=== PATIENT | male | born 1970 | race Caucasian/White ===

== ENCOUNTER 2017-11-02 11:05 | Observation (INO) ==
--- NOTE | 2017-11-02 11:39 | ED ---
HPI General Chief complaint: Back Pain/Injury Stated complaint: Back Pain Time Seen by Provider: 11/02/17 11:25 History of Present Illness HPI narrative: This is a 47-year-old male who presents for evaluation of worsening chronic lower back pain. He reports history of bulging disks in his lower back. Reports pain in his lower back that radiates down both legs, left greater than right, some paresthesias in the left foot. He was seen here on October 31 and underwent an epidural steroid nerve root injection performed on October [address] Perez. He reports that this helped a little bit with his pain. He spoke with Dr. Perez today who recommended that he come here for likely admission, consultation with neurosurgeon Dr. bartolo Salmeron is also expecting him. Symptoms are moderate, aggravated with movement, partially relieved with the use of hydrocodone acetaminophen. He denies any bowel or bladder incontinence, saddle anesthesia. He has no other complaints at this time. Related Data Home Medications Medication Instructions Recorded Confirmed cyclobenzaprine 5 mg PO TID 10/31/17 10/31/17 meloxicam 15 mg PO DAILY 10/31/17 10/31/17 Allergies Allergy/AdvReac Type Severity Reaction Status Date / Time Sulfa (Sulfonamide Allergy Mild rash Verified 10/31/17 05:42 Antibiotics) sulfamethoxazole Allergy Mild rash Verified 10/31/17 05:42 trimethoprim Allergy Mild rash Verified 10/31/17 05:42 Review of Systems ROS: all other systems reviewed are negative PMFSH Social History Social History Substance History: No History of Abuse Second Hand Smoke Exposure: No Smoking Status: Never smoker How Often Do You Have a Drink Containing Alcohol: Monthly or less Recent Travel in [facility] within the Last 8 Weeks: No Recent Out of Country Travel within the Last 8 Weeks: No Exam Narrative Exam Narrative: GENERAL: This is a well-developed well-nourished male in no acute distress SKIN: Warm and dry. HEAD: Atraumatic. Normocephalic. EYES: Pupils equal and round. No scleral icterus. No injection or drainage. ENT: No nasal bleeding or discharge. Mucous membranes pink and moist. NECK: Trachea midline. No JVD. CARDIOVASCULAR: Regular rate and rhythm. No murmur appreciated. RESPIRATORY: No accessory muscle use. Clear to auscultation. Breath sounds equal bilaterally. GASTROINTESTINAL: Abdomen soft, non-tender, nondistended. Hepatic and splenic margins not palpable. MUSCULOSKELETAL: No obvious deformities. No lower extremity edema. 2+ dorsalis pedis and posterior tibial pulses bilaterally. 5 out of 5 muscle strength for flexion and extension, leg flexion and extension, dorsi and plantar flexion, extensor hallucis longus bilaterally. NEUROLOGICAL: Awake and alert. No obvious cranial nerve deficits. Motor grossly within normal limits. Normal speech. Course Initial Documented Vital Signs Temperature 97.8 F 11/02/17 11:19 Pulse Rate 83 11/02/17 11:19 Respiratory Rate 20 11/02/17 11:19 Blood Pressure 175/90 H 11/02/17 11:19 Last Documented Vital Signs Temperature 97.8 F 11/02/17 11:19 Pulse Rate 83 11/02/17 11:19 Respiratory Rate 20 11/02/17 11:19 Blood Pressure 175/90 H 11/02/17 11:19 Medical Decision Making MDM Narrative Medical decision making narrative: I discussed the case with the circulating nurse in the OR who communicated with Dr. Trujillo. He would like the patient to be admitted to the medicine team with consultation to himself. Medical Screen Exam Complete: Yes Emergency Medical Condition: Yes Differential Diagnosis Differential Diagnosis: Back pain, herniated nucleus pulposus, conus medullaris , cauda equina syndrome, spinal stenosis, epidural abscess Lab Data Result diagrams: 11/02/17 11:50 11/02/17 11:50 Lab Results 11/02/17 11/02/17 Range/Units 11:50 11:50 WBC 7.7 (4.0-11.0) th/mm3 RBC 5.16 (4.50-5.90) mil/mm3 Hgb 15.4 (13.0-17.0) gm/dL Hct 45.5 (39.0-51.0) % MCV 88.1 (80.0-100.0) fL MCH 29.9 (27.0-34.0) pg MCHC 33.9 (32.0-36.0) % RDW 13.5 (11.6-17.2) % Plt Count 199 (150-450) th/mm3 MPV 9.3 (7.0-11.0) fL Neut % (Auto) 82.9 H (16.0-70.0) % Lymph % (Auto) 11.1 (9.0-44.0) % [place] % (Auto) 5.9 (0.0-8.0) % Eos % (Auto) 0.0 (0.0-4.0) % Baso % (Auto) 0.1 (0.0-2.0) % Neut # (Auto) 6.3 (1.8-7.7) th/mm3 Lymph # (Auto) 0.8 L (1.0-4.8) th/mm3 [place] # (Auto) 0.5 (0.0-0.9) th/mm3 Eos # (Auto) 0.0 (0.0-0.4) th/mm3 Baso # (Auto) 0.0 (0.0-0.2) th/mm3 WBC Differential . Differential Comment Auto diff final PT 10.3 (9.8-11.6) sec INR 1.0 Ratio APTT 22.3 L (24.3-30.1) sec Discharge Plan Discharge Disposition Patient Disposition: 30 Still Patient Discharge Condition Condition: Stable Discharge Details Diagnosis: Lumbar radiculopathy Physicians Team ED Provider: Pillo Christensen ED Midlevel Provider: Gabe Carlson Primary Care Provider: Anders Benavides Attending Provider: Edda Syed Status ED Status: Admitted Observation Patient
[2017-11-02 12:24] LABS: Baso % (Auto) 0.1 % (0.0-2.0); Hematocrit 45.5 % (39.0-51.0); Hemoglobin 15.4 gm/dL (13.0-17.0); Lymph # (Auto) 0.8 th/mm3 (1.0-4.8); Lymph % (Auto) 11.1 % (9.0-44.0); Mean Corpuscular HGB Conc 33.9 % (32.0-36.0); Mean Corpuscular Hemoglobin 29.9 pg (27.0-34.0); Mean Corpuscular Volume 88.1 fL (80.0-100.0); Mean Platelet Volume 9.3 fL (7.0-11.0); Mono # (Auto) 0.5 th/mm3 (0.0-0.9); Mono % (Auto) 5.9 % (0.0-8.0); Neut # (Auto) 6.3 th/mm3 (1.8-7.7); Neut % (Auto) 82.9 % (16.0-70.0); Platelet Count 199 th/mm3 (150-450); Red Blood Count 5.16 mil/mm3 (4.50-5.90); Red Cell Distribution Width 13.5 % (11.6-17.2); White Blood Count 7.7 th/mm3 (4.0-11.0)
[2017-11-02 12:32] LABS: Activated Partial Thrombo Time 22.3 sec (24.3-30.1); Prothrombin Time 10.3 sec (9.8-11.6)
[2017-11-02 12:49] LABS: Anion Gap 8 meq/L (5-15); Blood Urea Nitrogen 29 mg/dL (7-18); Calcium 9.1 mg/dL (8.5-10.1); Carbon Dioxide 26.2 meq/L (21.0-32.0); Chloride 110 meq/L (98-107); Glomerular Filtration Rate Greater Than 89 mL/min (>89); Glucose,Random 96 mg/dL (74-106); Potassium 4.2 meq/L (3.5-5.1); Sodium 144 meq/L (136-145)
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
[2017-11-02] MEDS ORDERED: Acetaminophen 325 MG Tablet PO PRN (15:39)
[2017-11-02] MEDS ORDERED: Morphine Inj 4 MG/ML Vial IV.PUSH PRN ×2 (15:44→15:45)
[2017-11-02] MEDS ORDERED: ceFAZolin 2 GM Premix Inj 2 GM/50 ML PIGGYBACK IV.SIG PRN (16:47)
[2017-11-02] MEDS: Sod Chloride 0.9% Inj 1,000 ML IV.CONT SCH ×2 (18:00→23:53)
--- NOTE | 2017-11-02 19:09 | MR ---
EXAM DATE: 11/02/2017 6:53 PM EDT AGE/SEX: 47 years / Male INDICATIONS: HNP. Back pain and left leg numbness. CLINICAL DATA: This is the patient's initial encounter. Patient reports that signs and symptoms have been present for 2 days and indicates a pain score of 5/10. MEDICAL/SURGICAL HISTORY: None. None. COMPARISON: [facility], MR LUMBAR SPINE W/O CONTRAST, 09/27/2017. [facility], MR CERVICAL SPINE W/O CONTRAST, . . TECHNIQUE: Multiplanar, multisequence MRI of the lumbar spine was performed without contrast. Patie nt was scanned in a sitting position; neutral, flexion, and extension scans were performed in the sa gittal plane. FINDINGS: Vertebra: Homogeneous signal. Normal alignment. Conus: Normal level and configuration. T12-L1: The thecal sac has a normal diameter. No evidence of disc bulge or protrusion. The neural foramina are patent bilaterally. L1-L2: There is a tiny central disc bulge which results in no spinal stenosis or neuroforaminal moose rowing. L2-L3: Minimal diffuse asymmetric disc bulge to the right is noted. Mild facet joint hypertrophy is noted bilaterally. There is no spinal stenosis. Mild right neuroforaminal narrowing is noted. The le ft neuroforamen is patent. L3-L4: Mild diffuse disc bulge and facet joint hypertrophy are noted resulting in no spinal stenosi s or significant neural foraminal narrowing L4-L5: There has been significant interval worsening of the moderate to large central disc herniati on with extruded fragment extending inferiorly which results in moderate to severe spinal stenosis. N o significant neural foraminal narrowing is noted. L5-S1: Mild diffuse disc bulge and facet joint hypertrophy are noted resulting in no spinal stenosi s or significant neuroforaminal narrowing. CONCLUSION: 1. Significant interval worsening of the moderate to large central disc herniation with extruded fra gment extending inferiorly at L4-5 which results in moderate to severe spinal stenosis. No significan t neural foraminal narrowing is noted. 2. Mild diffuse disc bulges and facet joint hypertrophy at L3-4 and L5-S1 resulting in no spinal telly nosis or neuroforaminal narrowing. 3. Mild right neuroforaminal narrowing at L2-3. 4. Tiny central disc bulge at L1-2. Electronically signed by: Pillo Soler MD 11/02/2017 7:08 PM EDT
[2017-11-02] MEDS: Senna/Docusate Sodium 8.6/50 MG Tablet PO SCH (20:38)
[2017-11-03] MEDS: Sod Chloride 0.9% Inj 1,000 ML IV.CONT SCH ×3 (05:13→15:55)
[2017-11-03] MEDS: Senna/Docusate Sodium 8.6/50 MG Tablet PO SCH ×2 (08:32→20:55)
[2017-11-03] MEDS ORDERED: methylPREDNISolone acetate 40 MG/ML VIAL ONE (08:42)
[2017-11-03] MEDS ORDERED: Gelatin Size 100 Topical Foam ONE (08:42)
[2017-11-03] MEDS ORDERED: Bupivacaine/Epinephrine 0.5% Inj 50 ML Vial ONE (08:42)
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
[2017-11-03] MEDS ORDERED: Thrombin Topical Soln 5,000 UNIT Vial TOPICAL ONE (11:17)
[2017-11-03] MEDS ORDERED: fentaNYL Citrate Inj 100 MCG/2 ML Ampul ONE ×2 (11:20→13:59)
[2017-11-03] MEDS ORDERED: HYDROmorphone PF Inj 2 MG/ML Vial ONE (11:20)
[2017-11-03] MEDS ORDERED: Hypromellose 0.3% Opth Gel 10 GM Bottle ONE (11:20)
[2017-11-03] MEDS ORDERED: Metoprolol Tartrate 25 MG Tablet PO ONE (11:36)
[2017-11-03] MEDS ORDERED: Chlorhexidine Gluconate 2% 1 Pack (2 Cloths) TOPICAL ONE (11:36)
[2017-11-03] MEDS ORDERED: Sodium Chlor 0.9% Inj 500 ML IV.SIG SCH (12:00)
[2017-11-03] MEDS ORDERED: Lidocaine PF 1% Inj 5 ML Syringe INFILTRATN ONE (12:37)
[2017-11-03] MEDS ORDERED: Bisacodyl 10 MG Supp RECTAL PRN (14:01)
--- NOTE | 2017-11-03 14:10 | P.BOP ---
Date of procedure: 11/03/17 Procedure: Left L4-5 hemilaminectomy, mesiofacetectomy, foraminotomy, microsurgical resection of the disk Anesthesia: RICKEY Surgeon: Chauncey Trujillo MD Forestry Fire Aide: Pillo flores Pathology: none sent Condition: stable Disposition: PACU
--- NOTE | 2017-11-03 14:12 | P.OP ---
Date of procedure: 11/03/17 Procedure: Left L4-5 hemilaminectomy, mesiofacetectomy, foraminotomy, microsurgical resection of the disk Anesthesia: RICKEY Surgeon: Chauncey Trujillo MD Surveyor Helper: Pillo Drew Pathology: none sent Operation and Findings: Mr. Matt is a 47 year old male with iintractable mechanical back pain and clinical evidence of lower extremity radiculopathy. He was found to have significanta large disk extrusion lumbar spinal stenosis with significant mass effect on the neural structures which correlated with the clinical symptoms. The patient has failed maximum nonsurgical management including multiple modalities of conservative treatment as well as pain management interventions by an interventional pain specialist. A surgical decompression was indicated as a last resort. The [id number] details of the procedure, indications, alternatives, risks and potential complications were fully discussed with the patient. The patient fully understood. All the questions were answered. No guarantees were given. The patient voiced requesting the procedure and provided informed consents. The patient was offered the alternative of delaying the procedure and continuing with nonsurgical management. DETAILS OF THE SURGICAL PROCEDURE After the induction of general anesthesia, endotracheal intubation was performed. A Correia catheter, bilateral GEREMIAS hose and sequential compression devices were placed and kept throughout the procedure. The patient was positioned prone on a Yaakov table over a Luca frame. All pressure points were carefully padded with eggcrate mattress. The eyes were tapped shut after ointment was applied by the anesthesiologist to prevent corneal abrasion. A Mamta hugger was placed over the exposed lower body to maintain control of the core body temperature. The lower lumbar region was prepped and draped in the usual sterile fashion. A spinal needle was placed for localization and an x- ray performed with a C-arm. A skin incision was made in the midline over the spinous processes L4-L5 with a #10 blade. Small subcutaneous bleeders were controlled with a bipolar and the dissection was carried out through the lumbar fascia exposing the spinous processes. A subperiostial dissection was performed with a Márquez elevator and a Bovie over the L4-L5 spinous process lamina and facets. A microdiscectomy self- retaining retractor was placed on the incision and an x-ray was obtained with an instrument placed underneath the lamina of L4. At this point in the procedure the operating microscope was draped in the usual sterile fashion and brought to the field. The rest of the surgical procedure was performed using microsurgical dissection technique with exception of the closure. Once the level was confirmed, a decompressive laminectomy was performed at L4- L5 using the TPS drill with an 4mm drill bit. A medial facetectomy was performed and the superior free border of the ligamentum flavum was dissected with a ligament dissector and removed with a thin footplate 2 mm Kerrison. The medial facetectomy was done and the left L5 nerve root was identified and followed towards its exit in the foramen. Epidural veins located laterally to the dural sac were coagulated with a bipolar and incised with microscissors. Gentle medial retraction of the dural sac allowed inspection of the disc space. The patient a very large disk extrusion, causing severe compression of the exiting nerve root. The extruded disk was carefully dissected and removed using micro pituitary forceps. The annulus fibrosus of the disc was coagulated with the bipolar and incised with an 11 blade. The extruded disc was carefully dissected from the surrounding tissue and removed with pituitary forceps. Then, a microdiscectomy was carried out in the standard fashion using straight and up-biting pituitary forceps. A good decompression of the dural sac and nerve root was achieved. The exit of the nerve root was inspected for residual disc fragments and hemostasis was secured with the bipolar. The incision was irrigated with a large amount of saline solution. A Valsalva maneuver failed to show any cerebrospinal fluid leak or bleeding. The decompression was assessed again and found to be satisfactory. The incision was then closed in layers. The fascia was closed with 0 Vicryl sutures in an interrupted fashion. The superficial fascia was closed with 0 Vicryl sutures. The fascia was infiltrated with 0.5% Marcaine with epinephrine 1:100,000 dilution. The subcutaneous tissue was irrigated then closed with 0 Vicryl and 3 -0 Vicryl. The skin was closed with 4-0 running subcuticular Vicryl. A sterile dressing was applied. At the end of the procedure, the sponge, needle and instrument counts were all correct. Estimated blood loss was less than 50 cc. No blood transfusion was given. No intraoperative complications occurred. The patient received prophylactic antibiotics. The patient was then extubated and transferred to the recovery room in stable condition.
--- NOTE | 2017-11-03 14:39 | XR ---
EXAM DATE: 11/03/2017 2:34 PM EDT AGE/SEX: 47 years / Male INDICATIONS: Level localization L4,L5. CLINICAL DATA: This is the patient's initial encounter. Patient reports that signs and symptoms have been present for 1 day and indicates a pain score of Nonresponsive. MEDICAL/SURGICAL HISTORY: None. None. COMPARISON: [facility] [place], MR LUMBAR SPINE W/O CONTRAST, 11/02/2017. . FINDINGS: A single view of the spine was performed. Targeted intraoperative images of the lumbosacral junction show a retractor with a metallic marker posterior to the L4-5 disc interspace. CONCLUSION: Metallic localizer posterior to the L4-5 disc interspace. Electronically signed by: Vini Perez MD 11/03/2017 2:38 PM EDT
[2017-11-03] MEDS: ceFAZolin Inj 2,000 MG in Sodium Chlor 0.9% Inj 100 ML IV.SIG SCH (20:55)
[2017-11-04] MEDS: Sod Chloride 0.9% Inj 1,000 ML IV.CONT SCH (01:13)
[2017-11-04] MEDS: ceFAZolin Inj 2,000 MG in Sodium Chlor 0.9% Inj 100 ML IV.SIG SCH ×2 (03:51→11:11)
--- NOTE | 2017-11-04 08:56 | P.PNFP ---
Subjective Interval history: Mr Matt had no acute events overnight. States he still has a little numbness in his left foot, but pain in back and radiation down posterior legs is gone. There is no saddle anesthesia or incontinence. Pain controlled, taking PO, ambulating to bathroom, voiding and flatus but no BM yet. His BP has been elevated to 150s-170s/80s-93 overnight but he did not require any pain medication. He has been cleared for discharge by neurosurgery this morning after his 3rd dose of Ancef and after working with PT. <Shan Blount III - 11/04/17 08:56> Results - Labs Result diagrams: 11/04/17 08:36 11/04/17 08:36 <Edda Syed - 11/06/17 09:31> - Imaging Impressions Lumbar Spine X-Ray 11/03/17 00:00 CONCLUSION: Metallic localizer posterior to the L4-5 disc interspace. <Shan Blount III - 11/04/17 08:56> Physical Exam Vital signs: Vital Signs 11/03/17 13:55 11/03/17 14:15 11/03/17 14:30 Temperature 98.5 F 98.2 F Pulse Rate 109 H 91 H 76 Respiratory Rate 20 18 20 Blood Pressure 174/85 H 162/72 H 157/78 H Pulse Oximetry 95 98 95 11/03/17 16:00 11/03/17 20:00 11/04/17 00:00 Temperature 97.7 F 97.3 F L 98.0 F Pulse Rate 78 80 78 Respiratory Rate 18 17 18 Blood Pressure 153/82 H 158/86 H 170/93 H Pulse Oximetry 94 L 97 98 11/04/17 01:00 11/04/17 04:00 Temperature 98.0 F Pulse Rate 79 Respiratory Rate 17 17 Blood Pressure 151/83 H Pulse Oximetry 100 Intake & Output 11/03/17 11/04/17 11/04/17 18:59 06:59 18:59 Intake Total 1999 1600 / 1600 Output Total 2175 / 2175 Balance 1999 -575 / -575 Intake: IV 1000 / 1000 1240 / 1240 NS Inj 1,000 ML @ 100 mls/hr IV 1000 / 1000 1000 / 1000 .CONT .Q10H [place] Rx#:[id number] Ancef Inj 2,000 MG In NS Inj 240 / 240 100 ML @ 240 mls/hr IV.SIG Q8H [place] Rx#:[id number] Oral 360 / 360 Anesthesia Amount 1000 / 1000 Output: Urine 2175 / 2175 Other: Date of Last Bowel Movement 11/02/17 11/02/17 <Shan Blount III - 11/04/17 08:56> Narrative: GENERAL: Youthful appearing 47 YO male with athletic build sitting up in bed in [facility]. SKIN: Warm and dry. No lesions or rash. HEAD: Normocephalic. Atraumatic. EYES: No scleral icterus. No injection or drainage. NECK: Supple, trachea midline. CARDIOVASCULAR: Regular rate and rhythm without murmurs, gallops, or rubs. RESPIRATORY: Breath sounds equal bilaterally. No accessory muscle use or increased WOB. GASTROINTESTINAL: Abdomen soft, non-tender, nondistended. +BS. MUSCULOSKELETAL: No cyanosis, or edema. 5/5 strength of bilateral LEs. BACK: Nontender without obvious deformity. Lumbar midline incision c/d/i closed with glue. No erythema. Neuro: Normal exam of bilateral LEs with 5/5 strength and sensation; pt notes appropriately normal tingling/numbness in toes of left foot and feeling of mild weakness of LLE. <Shan Blount III - 11/04/17 11:35> Assessment and Plan - Assessment (1) Low back pain radiating to both legs Code(s): M54.5 - Low back pain Status: Acute (2) Lumbar radiculopathy Code(s): M54.16 - Radiculopathy, lumbar region Status: Acute (3) CODY on CPAP Code(s): G47.33 - Obstructive sleep apnea (adult) (pediatric); Z99.89 - Dependence on other enabling machines and devices Status: Acute <Edda Syed - 11/06/17 09:31> (1) Low back pain radiating to both legs Code(s): M54.5 - Low back pain Status: Acute Plan: 47 YO male with PMHx chronic LBP and CODY with lumbar radiculopathy failed outpatient treatment with epidural nerve root injection admitted for Left L4-5 hemilaminectomy, mesiofacetectomy, foraminotomy, microsurgical resection of the disk by Dr Trujillo and is POD#1. Pt progressing well and met in room with Dr Rice this morning to discuss plan. -Neurosurgery consulted--Dr Trujillo -Reg diet -PO fluids -SCDs for VTE ppx -CBC, BMP, INR wnl -3rd dose Ancef this morning -PT eval and treat -Bowel regimen -PRN Grady--pt states he has some remaining at home and doesn't need any on discharge -Pt will follow up with NSGY 4-6 weeks after discharge -Pt advised to shower in 48 hours with no baths for a week or so and lift no more than 5-10 lbs; no strenuous activity Pt cleared for discharge by NSGY after PT and Ancef this morning (2) Lumbar radiculopathy Code(s): M54.16 - Radiculopathy, lumbar region Status: Acute Plan: as above (3) CODY on CPAP Code(s): G47.33 - Obstructive sleep apnea (adult) (pediatric); Z99.89 - Dependence on other enabling machines and devices Status: Acute 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 I reviewed and agree with the findings presented. I attest that I had a [id number] encounter with the patient on the same day, and personally performed and documented my assessment and findings in the medical record. he is doing amazingly well and has no pain! <Edda Syed - 11/06/17 09:31>
[2017-11-04 09:28] VITALS: BP 154/84; PULSE 86; RESP 18; TEMP 97.9; O2SAT 97
[2017-11-04 09:34] LABS: Hematocrit 45.1 % (39.0-51.0); Hemoglobin 15.5 gm/dL (13.0-17.0); Mean Corpuscular HGB Conc 34.4 % (32.0-36.0); Mean Corpuscular Hemoglobin 30.2 pg (27.0-34.0); Mean Corpuscular Volume 87.7 fL (80.0-100.0); Mean Platelet Volume 9.1 fL (7.0-11.0); Platelet Count 200 th/mm3 (150-450); Red Blood Count 5.14 mil/mm3 (4.50-5.90); Red Cell Distribution Width 13.6 % (11.6-17.2); White Blood Count 10.6 th/mm3 (4.0-11.0)
[2017-11-04] MEDS: Senna/Docusate Sodium 8.6/50 MG Tablet PO SCH (10:01)
[2017-11-04 10:03] LABS: Anion Gap 11 meq/L (5-15); Blood Urea Nitrogen 12 mg/dL (7-18); Calcium 9.4 mg/dL (8.5-10.1); Carbon Dioxide 23.4 meq/L (21.0-32.0); Chloride 107 meq/L (98-107); Glomerular Filtration Rate Greater Than 89 mL/min (>89); Glucose,Random 107 mg/dL (74-106); Sodium 141 meq/L (136-145)
--- NOTE | 2017-11-04 10:40 | P.PNNS ---
Subjective Interval history: patient reports dramatic improvement in back and leg pain. tolerating diet. + voiding Physical Exam Vital signs: Vital Signs 11/03/17 13:55 11/03/17 14:15 11/03/17 14:30 Temperature 98.5 F 98.2 F Pulse Rate 109 H 91 H 76 Respiratory Rate 20 18 20 Blood Pressure 174/85 H 162/72 H 157/78 H Pulse Oximetry 95 98 95 11/03/17 16:00 11/03/17 20:00 11/04/17 00:00 Temperature 97.7 F 97.3 F L 98.0 F Pulse Rate 78 80 78 Respiratory Rate 18 17 18 Blood Pressure 153/82 H 158/86 H 170/93 H Pulse Oximetry 94 L 97 98 11/04/17 01:00 11/04/17 04:00 11/04/17 08:00 Temperature 98.0 F 97.9 F Pulse Rate 79 86 Respiratory Rate 17 17 18 Blood Pressure 151/83 H 154/84 H Pulse Oximetry 100 97 Intake & Output 11/03/17 11/04/17 11/04/17 18:59 06:59 18:59 Intake Total 1999 1600 / 1600 Output Total 2175 / 2175 1500 / 1500 Balance 1999 -575 / -575 -1500 / -1500 Intake: IV 1000 / 1000 1240 / 1240 NS Inj 1,000 ML @ 100 mls/hr IV 1000 / 1000 1000 / 1000 .CONT .Q10H [place] Rx#:[id number] Ancef Inj 2,000 MG In NS Inj 240 / 240 100 ML @ 240 mls/hr IV.SIG Q8H [place] Rx#:[id number] Oral 360 / 360 Anesthesia Amount 1000 / 1000 Output: Urine 2175 / 2175 1500 / 1500 Other: # Voids 4 Date of Last Bowel Movement 11/02/17 11/02/17 11/02/17 Narrative: E4 AOx3 FCx4 5/5 strength in the upper and lower extremities except for 4+/5 in the left EHL/ DF incision: CDI Assessment and Plan - Plan 47 yo POD 1 L4-5 lami/discectomy. -neuro stable -ok to discharge -discharge instructions: ok to shower 48 hours post op, no heavy lifting or bending, follow up with neurosurgery as outpatient (4-6 weeks)
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
== END 2017-11-04 13:00 | disposition home or self-care (01) ==
LOC: NEPC 11:05 → NEDA 11:05 → NEPGCP 14:01 → N06 11-03 12:36
PROVIDERS: ADMIT Family Medicine; ATTEND Family Medicine
DX: G89.29 Other chronic pain; M54.5 Low back pain; G47.33 Obstructive sleep apnea (adult) (pediatric); M51.16 Intervertebral disc disorders with radiculopathy, lumbar region; M48.062 Spinal stenosis, lumbar region with neurogenic claudication